=== PATIENT | female | born 1960 | race Caucasian/White ===

== ENCOUNTER 2017-04-03 14:23 | Emergency (ER) | payer OTHER ==
[~2017-04-03] VITALS: Ht 165.1 cm; Wt 60.0 kg
[~2017-04-03 14:23] MED LIST: ALPR0.257 PO; SERT25TA PO
[2017-04-03] MEDS ORDERED: AMLO5TAB2 PO (14:45)
[2017-04-03 15:03] LABS: BASOPHILS # (AUTO) 0.01 x10^3/uL (0-0.1); BASOPHILS % (AUTO) 0 % (0-1); EOSINOPHILS # (AUTO) 0.03 x10^3/uL (0-0.4); EOSINOPHILS % (AUTO) 0 % (1-7); LYMPHOCYTES # (AUTO) 0.36 x10^3/uL (1-3.4); LYMPHOCYTES % (AUTO) 3 % (22-44); MD NO; MEAN CORPUSCULAR HGB CONC 34.4 g/dL (32.4-35.8); MEAN CORPUSCULAR VOLUME 87.3 fL (80-100); MEAN PLATELET VOLUME 8.6 fL (7.4-10.4); MONOCYTES # (AUTO) 0.45 x10^3/uL (0.2-0.8); MONOCYTES % (AUTO) 4 % (2-9); NEUTROPHILS # (AUTO) 9.91 x10^3/uL (1.8-6.8); NEUTROPHILS % (AUTO) 92 % (42-75); PLATELET COUNT 253 x10^3/uL (130-400); RED BLOOD COUNT 4.79 x10^6/uL (3.82-5.3); RED CELL DISTRIBUTION WIDTH 14.1 % (9.6-15.2)
[2017-04-03 15:14] LABS: ALBUMIN 4.1 g/dL (3.4-5.0); ANION GAP 9 mmol/L (5-15); CALCIUM 8.4 mg/dL (8.5-10.1); CHLORIDE 103 mmol/L (98-107)
[2017-04-03 15:19] LABS: ALANINE AMINOTRANSFERASE 30 U/L (12-78); ALKALINE PHOSPHATASE 65 U/L (45-117); BILIRUBIN,TOTAL 0.5 mg/dL (0.2-1.0); TOTAL PROTEIN 7.6 g/dL (6.4-8.2); TROPONIN I < 0.015 ng/mL (0.000-0.045)
[2017-04-03] MEDS ORDERED: LORazepam 2 MG/ML, 1ML IVPush ONE (15:30)
[2017-04-03] MEDS ORDERED: SODIUM CHLORIDE 0.9% 1,000ML IVBOLUS ONE ×2 (15:30→17:30)
[2017-04-03] MEDS ORDERED: LORazepam 2 MG/ML, 1ML ONE (15:57)
[2017-04-03] MEDS ORDERED: KETOROLAC 60 MG/2 ML IVPush ONE (16:30)
[2017-04-03] MEDS ORDERED: HYDROcodone/APAP 5/325 TABLET PO ONE (16:30)
[2017-04-03 16:33] LABS: MICROSCOPIC AUTO
[2017-04-03 16:34] LABS: CULTURE INDICATED? YES
[2017-04-03] MEDS ORDERED: KETOROLAC 30 MG/1 ML ONE (16:40)
[2017-04-03] MEDS ORDERED: HYDROcodone/APAP 5/325 TABLET ONE (16:40)
[2017-04-03 19:13] VITALS: BP 106/74
== END 2017-04-03 19:50 | disposition home or self-care (01) ==
LOC: ED 18:48
DX: R00.0 Tachycardia, unspecified (principal); N30.01 Acute cystitis with hematuria; E86.0 Dehydration; I10 Essential (primary) hypertension
CPT/HCPCS: 36415; 71046; 80053; 81001; 84484; 85025; 87086; 93005; 93971; 96361; 96374; 96375; 99285; J1885; J2060; J7030